=== PATIENT | male | born 1955 | race Caucasian/White ===

== ENCOUNTER → 2019-05-29 | Outpatient (CLI) | payer BC ==
--- NOTE | 2019-05-31 00:10 | MR ---
EXAMINATION TYPE: MR shoulder RT wo con DATE OF EXAM: 05/29/2019 COMPARISON: HISTORY: Right shoulder pain Multiplanar multiecho imaging of the right shoulder was performed without contrast. There is mild shoulder joint effusion. Subscapularis tendon is intact. Biceps tendon is intact. There is some narrowing at the glenohumeral joint. There is spurring on the humeral head and inferior roxanna oid labrum. There is some spurring at the AC joint. There is no significant subacromial impingement. There is slight thickening and increased signal in the supraspinatus tendon without retraction. I do not see a full-thickness tear. There is no bony destructive process. There is no evidence of a fractu re. IMPRESSION: Shoulder joint effusion. Moderately severe osteoarthritis in the glenohumeral joint. Mild thickening and signal changes in the supraspinatus tendon consistent with tendinitis.
== END | disposition home or self-care (01) ==
LOC: RADMRIMAIN 05:40
PROVIDERS: ATTEND Orthopaedic Surgery
DX: M19.011 Primary osteoarthritis, right shoulder (principal)

== ENCOUNTER → 2021-07-14 | Outpatient (CLI) | payer BC | END | disposition home or self-care (01) | LOC: LABPAT 09:24 | PROVIDERS: ATTEND Orthopaedic Surgery | DX: Z01.812 Encounter for preprocedural laboratory examination (principal); Z22.322 Carrier or suspected carrier of Methicillin resistant Staphylococcus aureus; M16.11 Unilateral primary osteoarthritis, right hip | CPT/HCPCS: 87070 ==

== ENCOUNTER → 2021-07-22 | Outpatient (CLI) | payer BC ==
[2021-07-22 14:06] LABS: Basophils # (A) 0.07 X 10*3/uL (0.00-0.10); Basophils % (A) 1.1 %; Eosinophils # (A) 0.36 X 10*3/uL (0.04-0.35); Eosinophils % (A) 5.7 %; HCT 49.6 % (39.6-50.0); HGB 16.4 g/dL (13.0-17.0); Immature Grans, Automated 0.5 %; Lymphocytes # (A) 1.03 X 10*3/uL (0.90-5.00); Lymphocytes % (A) 16.2 %; MCHC 33.1 g/dL (32.0-37.0); MCV 93.8 fL (80.0-97.0); Monocytes % (A) 9.4 %; NRBC Per 100 WBC 0 /100 WBCS (0.0-0.0); Neutrophils # (A) 4.26 X 10*3/uL (1.80-7.70); Neutrophils % (A) 67.1 %; Platelet Count 214 X 10*3/uL (140-440); RBC 5.29 X 10*6/uL (4.40-5.60); RDW 12.9 % (11.5-14.5); WBC 6.35 X 10*3/uL (4.50-10.00)
[2021-07-22 14:08] LABS: Anion Gap 12.6 mmol/L (10.00-18.00); Carbon Dioxide 22.4 mmol/L (20.0-27.5); Potassium 4.8 mmol/L (3.5-5.5)
[2021-07-22 14:16] LABS: INR 0.97 (0.90-1.11)
== END | disposition home or self-care (01) ==
LOC: LABPAT 08:27
PROVIDERS: ATTEND Orthopaedic Surgery
DX: Z01.812 Encounter for preprocedural laboratory examination (principal); M16.11 Unilateral primary osteoarthritis, right hip
CPT/HCPCS: 80051; 85025; 85610

== ENCOUNTER 2021-07-24 13:35 | Day surgery (SDC) | payer BC ==
[2021-07-21 12:44] VITALS: BMI 28.5
--- NOTE | 2021-07-23 14:18 | HP ---
HISTORY AND PHYSICAL DATE OF SURGERY: 07/24/2021 Jesse Arzola is a 65-year-old patient seen with symptomatic right hip osteoarthritis. We discussed options for treatment. He elected to proceed with direct anterior right total hip arthroplasty. Consent regarding the procedure was obtained. Cardiac clearance was provided by Dr. Maldonado. PAST MEDICAL HISTORY: Cardiovascular disease, hypertension, hyperlipidemia, [id number] diabetes. PAST SURGICAL HISTORY: Knee arthroscopy. DAILY MEDICATIONS: Amlodipine, meloxicam, Xarelto, atorvastatin, enalapril, glipizide, Januvia, omeprazole. ALLERGIES: NONE REPORTED. SOCIAL HISTORY: He denies tobacco use. PHYSICAL EVALUATION OF THE RIGHT HIP: He has diffuse tenderness about the hip girdle. Very limited range of motion with severe pain. Positive hip impingement sign. Straight-leg raise is negative. His distal neurovascular exam is intact. Radiographs of the right hip reveal severe osteoarthritic changes. IMPRESSION: 1. Right hip osteoarthritis. 2. Cardiovascular disease. 3. Hypertension. 4. Hyperlipidemia. 5. [id number] diabetes. PLAN: Direct anterior right total hip arthroplasty. MMODL / IJN: [id number] /
[~2021-07-24 13:35] MED LIST: ACETAMINOPHEN TAB 500 MG TAB PO PRN; DEXAMETHASONE SOD PHOSPHATE 4 MG/ML 1 ML VIAL IV ONE; LIDOCAINE 1% (10MG/ML) FOR IV START INTRADERMA PRN; MELOXICAM 7.5 MG TAB PO PRN; MIDAZOLAM 2 MG/2 ML VIAL IV PRN; ONDANSETRON 4 MG/2 ML VIAL IVP ONE; TRANEXAMIC ACID 1,000 MG in SODIUM CHLORIDE 0.9% 100 ML IVPB PRN
[2021-07-24 14:45] LABS: Glucose,Whole Blood 126 mg/dL (75-99)
[2021-07-24] MEDS: LACTATED RINGERS 1,000 ML IV SCH (14:46)
[2021-07-24] MEDS ORDERED: PHENYLEPHRINE-0.9% NACL SYG 1,000 MCG/10 ML SYRINGE ONE (15:48)
[2021-07-24] MEDS ORDERED: TRANEXAMIC ACID 1,000 MG/10 ML VIAL ONE (15:48)
[2021-07-24] MEDS ORDERED: MIDAZOLAM 2 MG/2 ML VIAL ONE (15:48)
[2021-07-24] MEDS ORDERED: PROPOFOL 10 MG/ML 20 ML VIAL IV ONE (15:48)
[2021-07-24] MEDS ORDERED: LIDOCAINE 1% INJ 10MG/ML (20 ML MDV) ONE (15:48)
[2021-07-24] MEDS ORDERED: SODIUM CHLORIDE 0.9% 100 ML BAG ONE (15:48)
[2021-07-24] MEDS ORDERED: ePHEDrine 50 MG/ML 1 ML VIAL ONE (15:48)
[2021-07-24] MEDS ORDERED: fentaNYL (PF) 50 MCG/ML 2 ML AMP ONE (15:48)
[2021-07-24] MEDS ORDERED: BUPIVACAINE (PF) 0.5% 30 ML VIAL SQ ONE (17:16)
[2021-07-24] MEDS ORDERED: HYDROcodone/APAP 7.5-325MG 1 EACH TAB PO PRN (17:38)
[2021-07-24] MEDS ORDERED: NALOXONE 0.4 MG/ML 1 ML VIAL IV PRN (17:38)
[2021-07-24] MEDS ORDERED: HYDROmorphone 1 MG/ML 1 ML SYRINGE IVP PRN ×2 (17:38)
[2021-07-24] MEDS ORDERED: MAGNESIUM HYDROXIDE 2,400 MG/10 ML CUP PO PRN (17:38)
[2021-07-24] MEDS ORDERED: ACETAMINOPHEN TAB 325 MG TAB PO PRN (17:38)
[2021-07-24] MEDS ORDERED: ONDANSETRON 4 MG/2 ML VIAL IVP PRN (17:38)
[2021-07-24] MEDS ORDERED: LACTATED RINGERS 1,000 ML IV ONE (17:41)
--- NOTE | 2021-07-24 17:43 | P.OP ---
Date of Procedure: 07/24/21 Preoperative Diagnosis: Right hip osteoarthritis Postoperative Diagnosis: Right hip osteoarthritis Procedure(s) Performed: Direct anterior right total hip arthroplasty Implants: 1. Depuy Corail size 11 high offset with collar press-fit femoral stem 2. Depuy pinnacle 58 mm press-fit acetabular shell 3. Depuy pinnacle neutral polyethylene acetabular liner 36 mm ID 50 mm OD 4. Biolox delta ceramic femoral head +5 36 mm Anesthesia: local, spinal Surgeon: Sammy Flores [employer]: Immanuel Thorne Estimated Blood Loss (ml): 150 Pathology: other (Femoral head) Condition: stable Disposition: PACU Indications for Procedure: 65-year-old patient seen with symptomatic right hip osteoarthritis. After treatment options were discussed, he elected to proceed with direct anterior right total hip arthroplasty. Operative Findings: see description of procedure Description of Procedure: The patient was taken to the operative suite. Patient underwent a spinal anesthetic by the department of anesthesia. Patient was then transferred to the [place] table. Patient was given preoperative IV antibiotics and TXA. Both lower extremities were placed in standard leg spars. The hip was then prepped and draped in the normal sterile orthopedic fashion. A standard anterior incision was made beginning 3 cm lateral and 1 cm distal to the ASIS extending 10 cm. Dissection was then carried down through the subcutaneous soft tissues down to the fascia overlying the tensor fascia demi. An incision was now made through the fascia. Careful dissection was taken down exposing the tensor fascia demi muscle. A Cobra retractor was now placed along the medial femoral neck and a second one along the lateral femoral neck. The venous circumflex vessels were now identified, cauterized and clipped. We identified the anterior hip capsule. An incision was made through the hip capsule along the lateral border. I performed a partial anterior capsulectomy. Retractors were now placed around the femoral neck itself. A femoral neck cut was now made with a sagittal saw. It was completed with an osteotome at the lateral neck area. The femoral head was now removed without difficulty. The extremity was now rotated to 60 of external rotation. It was locked in position. Residual labrum was now debrided out. Serial reaming was performed of the acetabulum while John LUCERO assisted holding an anterior retractor for exposure. Once we reached the appropriate size and a trial was position and fit nicely. The appropriate size was now chosen opened and made available. It was introduced into the acetabulum without difficulty. The C-arm/fluoroscopy was now brought into the operative field. We made sure we had a true AP pelvic view. We now under direct C-arm/fluoroscopy introduced into the acetabular component with appropriate version and inclination. I held the cup in appropriate position well John LUCERO used a mallet to seat the acetabular component. I noted the component now to be well seated and stable. Acetabular cup introduce her was removed. The C-arm was pulled back. An appropriate liner was introduced and clicked into position. It was felt to be stable. At this point retractors were removed. The extremity was now placed into 140 external rotation with no traction. The leg was now dropped to the ground and adducted. Appropriate retractors were now positioned along the proximal femur. We also placed our femoral look into position. Additional capsular releasing was performed to gain access to the proximal femur. We now used a box osteotome. A canal finder was now utilized. Serial broaching was now performed with the assistance of John LUCERO tapping the broaches down with a mallet while held the broach in appropriate rotation and position. This was done until we reached the appropriate size with good overall rotational stability. Appropriate calcar planing was performed. A trial head/neck was placed into position. The hip was now reduced. The C- arm/fluoroscopy was brought back into the operative field. I obtained AP pelvis demonstrating adequate leg length alignment. The trial components appeared ad equately sized and positioned. The C-arm/fluoroscopy was pulled back. Retractors were repositioned and the hip was dislocated. The leg was again taken down to the ground and adducted. Appropriate retractors were repositioned as well as the femoral hook. All trial components were removed. The femoral implant was opened along with the femoral head. The femoral implant was introduced on the appropriate handle into our pre-broached area. I held the component position well John LUCERO used a mallet to seat the femoral component. The femoral component was now noted to be well seated and stable.. The femoral head was introduced with good positioning and fixation noted. Retractors were now removed. The hip was now reduced. There appeared be good positioning of the hip confirmed on intraoperative fluoroscopy. Spot films were obtained to document this. A second gram of TXA was given. The deep and superficial soft tissues were infiltrated with local analgesic. Bipolar cautery had been utilized intermittently through the procedure for hemostasis. The wound was irrigated copiously with pulse lavage mechanical irrigation. The fascia was repaired with Vicryl suture. The subcutaneous soft tissues were repaired in layers with Vicryl suture. The skin was approximated with pernio/Dermabond. Sterile dressings were applied. Patient was then awakened, transferred to a bed and taken to recovery in stable condition. John LUCERO assisted with the complex procedure.
[2021-07-24 18:33] LABS: Glucose,Whole Blood 167 mg/dL (75-99)
[2021-07-24] MEDS: HYDROmorphone 0.5 MG/0.5 ML SYRINGE IVP PRN ×2 (19:00→19:30)
[2021-07-24] MEDS ORDERED: KETOROLAC 15 MG/ML 1 ML VIAL IVP ONE (19:03)
--- NOTE | 2021-07-24 19:03 | XR ---
EXAMINATION TYPE: XR Hip Limited RT DATE OF EXAM: 07/24/2021 COMPARISON: NONE HISTORY: Hip pain TECHNIQUE: 2 views 22 seconds fluoroscopy time was recorded. FINDINGS: 2 fluoroscopic images were obtained. There is right hip prosthesis. Components are in anato melba position. IMPRESSION: No complicating process seen.
[2021-07-24] MEDS ORDERED: SENNOSIDES-DOCUSATE SODIUM 1 EACH TAB PO SCH (21:00)
[2021-07-24 21:05] LABS: Glucose,Whole Blood 232 mg/dL (75-99)
--- NOTE | 2021-07-24 21:29 | FL ---
EXAMINATION TYPE: FL guidance operating room DATE OF EXAM: 07/24/2021 CLINICAL HISTORY: Right hip pain and osteoarthritis. TECHNIQUE: Fluoroscopy. COMPARISON: None. FINDINGS: Fluoroscopic guidance was provided during right hip replacement procedure performed by Dr. Flores. A total of 22 seconds of fluoroscopic time was utilized during the procedure and 2 spot intraoperative images are acquired. IMPRESSION: As Above.
[2021-07-24] MEDS: HYDROcodone/APAP 5-325MG 1 EACH TAB PO PRN (22:37)
[2021-07-25] MEDS ORDERED: SODIUM CHLORIDE 0.9% 1,000 ML IV SCH (02:30)
[2021-07-25] MEDS: HYDROcodone/APAP 5-325MG 1 EACH TAB PO PRN ×2 (04:55→11:56)
[2021-07-25 05:19] LABS: Basophils % (A) 0 %; Eosinophils % (A) 0 %; HCT 42.7 % (39.0-53.0); HGB 14.1 gm/dL (13.0-17.5); Lymphocytes # (A) 0.7 k/uL (1.0-4.8); Lymphocytes % (A) 6 %; MCH 32.2 pg (25.0-35.0); MCV 97.4 fL (80.0-100.0); Mean Platelet Volume 9.3; Monocytes # (A) 0.7 k/uL (0-1.0); Monocytes % (A) 7 %; Neutrophils # (A) 8.8 k/uL (1.3-7.7); Neutrophils % (A) 86 %; Platelet Count 157 k/uL (150-450); RBC 4.38 m/uL (4.30-5.90); RDW 12.7 % (11.5-15.5); WBC 10.3 k/uL (3.8-10.6)
[2021-07-25] MEDS: LACTATED RINGERS 1,000 ML IV SCH (06:22)
[2021-07-25 07:13] LABS: Glucose,Whole Blood 200 mg/dL (75-99)
[2021-07-25] MEDS ORDERED: INSULIN ASPART (NovoLOG) 100 UNIT/ML VIAL SQ SCH (07:30)
[2021-07-25] MEDS ORDERED: PANTOPRAZOLE 40 MG TABLET PO SCH (07:30)
[2021-07-25] MEDS ORDERED: glipiZIDE 10 MG TAB PO SCH (07:30)
[2021-07-25] MEDS ORDERED: carvediloL 6.25 MG TAB PO SCH (07:30)
[2021-07-25 08:29] VITALS: BP 125/65; PULSE 79; RESP 16; TEMP 99
[2021-07-25] MEDS ORDERED: lisinopriL 10 MG TAB PO SCH (09:00)
[2021-07-25] MEDS ORDERED: FENOFIBRATE 160 MG TAB PO SCH (09:00)
[2021-07-25] MEDS ORDERED: ATORVASTATIN 20 MG TAB PO SCH (09:00)
[2021-07-25] MEDS ORDERED: CHOLECALCIFEROL 125 MCG (5000 IU) TABLET PO SCH (09:00)
[2021-07-25] MEDS ORDERED: amLODIPine 10 MG TAB PO SCH (09:00)
[2021-07-25] MEDS ORDERED: FAMOTIDINE 20 MG TAB PO SCH (09:00)
[2021-07-25] MEDS ORDERED: RIVAROXABAN 10 MG TAB PO SCH (09:00)
--- NOTE | 2021-07-25 10:49 | P.PN ---
Subjective Progress Note Date: 07/25/21 Principal diagnosis: Status post direct anterior right total hip arthroplasty Patient evaluated at bedside, resting comfortably. He is doingwell. He is having no difficulty with urinating. His knee headaches, lightheadedness, chest pain or shortness of breath. Objective - Vital Signs Vital signs: Vital Signs Temp 99.0 F 07/25/21 08:00 Pulse 79 07/25/21 08:00 Resp 16 07/25/21 08:00 BP 125/65 07/25/21 08:00 Pulse Ox 95 07/25/21 08:00 Intake & Output 07/24/21 07/25/21 07/25/21 18:59 06:59 18:59 Intake Total 850 200 Output Total 150 800 Balance 700 -600 Weight 93.8 kg Intake: IV 850 200 Output: Urine 800 Estimated Blood Loss 150 - Exam Right lower extremity: Incision is clean, dry, and intact. The foam dressing is in good condition. There is minimal soft tissue swelling and ecchymosis surrounding the medial and lateral aspects of the incision. Calf is soft, no tenderness with palpation. Plantar flexion, dorsiflexion, EHL, FHL are intact. Sensory exam to light touch throughout the extremity is intact, dorsal pedis pulses 2+. - Labs CBC & Chem 7: 07/25/21 04:46 Labs: Abnormal Lab Results - Last 24 Hours (Table) 07/24/21 07/24/21 07/24/21 Range/Units 14:43 18:31 21:04 Neutrophils # (1.3-7.7) k/uL Lymphocytes # (1.0-4.8) k/uL POC Glucose (mg/dL) 126 H 167 H 232 H (75-99) mg/dL 07/25/21 07/25/21 Range/Units 04:46 07:12 Neutrophils # 8.8 H (1.3-7.7) k/uL Lymphocytes # 0.7 L (1.0-4.8) k/uL POC Glucose (mg/dL) 200 H (75-99) mg/dL Assessment and Plan Assessment: Postoperative day #1 status post right anterior right total hip arthroplasty Plan: Pain control, plan for discharge home on [place] 5 mg/325 mg. Colace 100 mg also use for constipation prophylaxis GI and DVT prophylaxis, he will resume his normally prescribed Xarelto Wound care instructions were discussed, this including showering instructions and icing and elevating instructions Home physical therapy and nursing after discharge Medical recommendations Plan for discharge home today Time with Patient: Less than 30
--- NOTE | 2021-07-25 10:50 | P.DS ---
Providers Date of admission: 07/24/2021 Attending physician: Sammy Flores Consults: 07/24/21 17:41 Consult Physician Routine Consulting Provider: Sarbjit Singh Reason/Comments: Medical Management Do you want consulting provider notified?: Yes Primary care physician: Radha Craft Hospital Course: Date of admission: 07/24/2021 Date of discharge: 07/25/2021 Admission diagnosis: Status post direct anterior right total hip arthroplasty Discharge diagnosis: Same Attending physician: Dr. Flores Surgical procedures: Direct anterior right total hip arthroplasty Brief history: Patient is a 65 year old male with a history of progressive primary right hip osteoarthritis. At this point patient has failed conservative treatment measures and has opted to proceed with a elective direct anterior right total hip arthroplasty. Hospital course: Details of patient's surgery can be found in operative report. Patient tolerated the procedure well and was subsequently transported to orthop edic floor. Patient's orthopeidc and medical care was provided daily. Patient had daily laboratory tests performed for evaluation of overall blood counts. Patient had daily physical therapy to include strengthening range of motion as well as education with walker ambulation. Patient was treated with Xarelto for their postoperative DVT prophylaxis during their inpatient stay. Patient was noted to have a relatively uneventful postoperative course. Patient reported satisfactory pain control with oral pain medications by postoperative day 0. Patient showed satisfactory progress with physical therapy. Patient moved steadily through the program and had no difficulty meeting the goals by postoperative day 1. Given patient's otherwise satisfactory course and having met physical therapy goals, plan is to discharge patient home on postoperative day 1. Discharge condition/disposition: Patient will be discharged home in stable condition. Discharge medications: Instructions are given on resumption of patient's normal daily medications per primary care recommendation, in addition patient will be prescribed [place] 5 mg/325 mg, Colace 100mg. Discharge instructions: 1. Wound care and infection precautions, keep incision dry and covered while showering, no lotions, creams, moisturizers. No soaking, tubs, pools, hottubs. Do not scrub over the incision. 2. Weight-bear as tolerated with walker / cane until follow-up. 3. Ice and elevate when necessary. Do not exceed 20 minutes per hour with ice pack. 4. Utilize compression sleeve until seen at first follow up appointment. 5. Visiting nursing care. 6. Home physical therapy 7. Pain meds and anticoagulants per prescription. 8. Pain medication has potential to cause constipation. Increase oral fluid and fiber intake. Contact primary care provider if you have not had a bowel movement within 48 hours after discharge 9. No anti-inflammatory medication until discussed at first post operative visit, this including Motrin, Aleve, Mobic, Diclofenac 10. Follow up in office at 2 weeks postop with John Thorne PA-C/Harlan Christianson 11. Follow up with your primary care doctor 7-10 days after discharge. 12. Contact [facility] with any questions, . Procedures: Direct anterior right total hip arthroplasty Patient Condition at Discharge: Good Plan - Discharge Summary Discharge Rx Participant: No New Discharge Prescriptions: New Docusate [Colace] 100 mg PO DAILY #30 capsule HYDROcodone/APAP 5-325MG [[place] 5-325] 1 tab PO Q6HR PRN #28 tab PRN Reason: Pain Continue Enalapril [Vasotec] 10 mg PO DAILY Meloxicam 15 mg PO QAM glipiZIDE XL [Glucotrol XL] 10 mg PO DAILY Dapagliflozin Propanediol [Farxiga] 5 mg PO QAM Cholecalciferol [Vitamin D3 (125 Mcg = 5000 Iu)] 125 mcg PO DAILY sitaGLIPtin PHOSPHATE [Januvia] 100 mg PO DAILY Omeprazole [PriLOSEC] 20 mg PO AC-BID Fenofibrate,Micronized 200 mg PO QAM Atorvastatin [Lipitor] 60 mg PO QAM Aspirin [Adult Low Dose Aspirin EC] 81 mg PO DAILY amLODIPine [Norvasc] 10 mg PO DAILY Carvedilol [Coreg] 6.25 mg PO BID Rivaroxaban [Xarelto] 20 mg PO DAILY Discontinued Enoxaparin [Lovenox] 100 mg SQ DIRECTED Discharge Medication List Aspirin [Adult Low Dose Aspirin EC] 81 mg PO DAILY 07/21/21 [History] Atorvastatin [Lipitor] 60 mg PO QAM 07/21/21 [History] Carvedilol [Coreg] 6.25 mg PO BID 07/21/21 [History] Cholecalciferol [Vitamin D3 (125 Mcg = 5000 Iu)] 125 mcg PO DAILY 07/21/21 [History] Dapagliflozin Propanediol [Farxiga] 5 mg PO QAM 07/21/21 [History] Enalapril [Vasotec] 10 mg PO DAILY 07/21/21 [History] Fenofibrate,Micronized 200 mg PO QAM 07/21/21 [History] Meloxicam 15 mg PO QAM 07/21/21 [History] Omeprazole [PriLOSEC] 20 mg PO AC-BID 07/21/21 [History] Rivaroxaban [Xarelto] 20 mg PO DAILY 07/21/21 [History] amLODIPine [Norvasc] 10 mg PO DAILY 07/21/21 [History] glipiZIDE XL [Glucotrol XL] 10 mg PO DAILY 07/21/21 [History] sitaGLIPtin PHOSPHATE [Januvia] 100 mg PO DAILY 07/21/21 [History] Docusate [Colace] 100 mg PO DAILY #30 capsule 07/25/21 [Rx] HYDROcodone/APAP 5-325MG [[place] 5-325] 1 tab PO Q6HR PRN #28 tab 07/25/21 [Rx] Follow up Appointment(s)/Referral(s): [facility] [NON-STAFF] - As Needed [facility] [NON-STAFF] - As Needed (jose ) Radha Craft MD [Primary Care Provider] - 1 Week Sammy Flores DO [Doctor of Osteopathic Medicine] - 08/09/21 3:50 pm (With John) Activity/Diet/Wound Care/Special Instructions: Orthopedic Discharge Instructions: 1. Wound care and infection precautions, keep incision dry and covered while showering, no lotions, creams, moisturizers. No soaking, pools, hot tubs. Do not scrub over incision. 2. Weight-bear as tolerated with walker / cane until follow-up. 3. Ice and elevate when necessary. Do not exceed 20 minutes per hour with ice pack. 4. Utilize compression sleeve until seen at first follow up appointment. 5. Pain meds and anticoagulants per prescription. 6. Pain medication has potential to cause constipation. Increase oral fluid and fiber intake. Contact primary care provider if you have not had a bowel movement within 48 hours after discharge. 7. No anti-inflammatory medication until discussed at first post operative visit, this including Motrin, Aleve, Mobic, Diclofenac. 8. Follow up in office at 2 weeks postop with John Thorne PA-C/Harlan Garcia PA-C 9. Follow up with your primary care doctor 7-10 days after discharge. 10. Contact [facility] with any questions, . Discharge Disposition: HOME WITH HOME HEALTH SERVICES
[2021-07-25 11:21] LABS: Glucose,Whole Blood 161 mg/dL (75-99)
--- NOTE | 2021-07-25 21:44 | P.CONS ---
History of Present Illness - Reason for Consult Consult date: 07/25/21 Medical management Requesting physician: Sammy Flores - Chief Complaint Right hip surgery - History of Present Illness This is a pleasant 65-year-old patient, follows with Dr. Radha Craft. Chronic stable medical conditions include diabetes, hyperlipidemia, hypertension, CAD with stent last one being in 2016, pulmonary embolism 2 years ago, DVT in March 16. Patient has undergone right total hip arthroplasty. Slight pain. Has been up and walking. No nausea vomiting. No chest pain or shortness of breath. Did tolerate his breakfast this morning. Review of systems: GEN.: None EYES: None HEENT: None NECK: None RESPIRATORY: None CARDIOVASCULAR: None GASTROINTESTINAL: None GENITOURINARY: None MUSCULOSKELETAL: Joint pains LYMPHATICS: None HEMATOLOGICAL: None PSYCHIATRY: None NEUROLOGICAL: None Past medical history to include: Diabetes, DVT in March 16, hypertension, hyperlipidemia, osteoarthritis, bilateral PE in 2017 Social history: . No alcohol. Smoked for 15 years stopped in 1977. Physical examination: VITAL SIGNS: 99, 79, 16, 125/65, 95% room air GENERAL: BMI 28.8, sitting on a chair, awake, comfortable. EYES: Pupils equal. Conjunctiva normal. HEENT: External appearance of nose and ears normal, oral cavity grossly normal. NECK: JVD not raised; masses not palpable. HEART: First and second heart sounds are normal; no edema. LUNGS: Respiratory rate normal; clear to auscultation. ABDOMEN: Soft, nontender, liver spleen not palpable, no masses palpable. PSYCH: Alert and oriented x3; mood and affect normal. MUSCULOSKELETAL:No Clubbing/cyanosis;muscles-grossly intact. Dressing over the right incision. Evidence of OA especially in the hands NEUROLOGICAL: Cranial nerves grossly intact; no facial asymmetry, power and sensation grossly intact. LYMPHATICS: No lymph nodes palpable in the axilla and neck INVESTIGATIONS, reviewed in the clinical context: White count 10.3 hemoglobin 14.1 platelets 157 Accu-Cheks noted Recent labs: Potassium 4.8 sodium 136 Assessment and plan: -Right total hip arthroplasty by Dr. Bain Continue home dose of xarelto -Diabetes mellitus type 2, oral hypoglycemic farxiga 5 mg daily, Glucotrol XL 10 mg a day, Januvia 100 mg a day -Chronic DVT lower extremity Xarelto 20 mg a day -Essential hypertension Coreg 6.25 mg twice a day Vasotec 10 mg a day Norvasc 10 mg a day -Hyperlipidemia Lipitor 60 mg a day TriCor 1 mg a day -GERD Prilosec 20 mg twice a day -CAD with a prior history of stent last one being in 2016 Aspirin 81 mg a day, Coreg 6.25 mg twice a day Vasotec 10 mg a day Norvasc 10 mg a day -Chronic pulmonary embolism in 2017, chronic DVT being in February 2021 Xarelto 20 mg a day -Primary osteoarthritis multiple joints bilateral Pain medications as needed Care was discussed with the patient. Questions answered. Home medications resumed. Patient told to keep his Accu-Cheks and blood pressure. Follow-up with us family doctor. Activity per orthopedics. Thank you Dr. Bain Past Medical History Past Medical History: Diabetes Mellitus, Deep Vein Thrombosis (DVT), Hyperlipidemia, Hypertension, Myocardial Infarction (HI), Osteoarthritis (OA), Pulmonary Embolus (PE) Additional Past Medical History / Comment(s): HI x 3, 2017 rudy PE's, 02/2021-DVT rt leg, Last Myocardial Infarction Date:: 2017 History of Any Multi-Drug Resistant Organisms: None Reported Past Surgical History: Heart Catheterization, Heart Catheterization With Stent, Orthopedic Surgery, Tonsillectomy Additional Past Surgical History / Comment(s): arthroscopy rt knee, 4 cardiac stents, procedure to "pump heparin to blood clot in lung" Past Anesthesia/Blood Transfusion Reactions: No Reported Reaction Date of Last Stent Placement:: 2014 Past Psychological History: No Psychological Hx Reported Smoking Status: Never smoker Past Alcohol Use History: Occasional Additional Past Alcohol Use History / Comment(s): quit smoking 20 yrs ago, smoked for 25 yrs, 1 PPD Past Drug Use History: None Reported - Past Family History Mother Family Medical History: No Reported History Medications and Allergies Home Medications Medication Instructions Recorded Confirmed Type Aspirin [Adult Low Dose Aspirin EC] 81 mg PO DAILY 07/21/21 07/21/21 History Atorvastatin [Lipitor] 60 mg PO QAM 07/21/21 07/24/21 History Carvedilol [Coreg] 6.25 mg PO BID 07/21/21 07/24/21 History Cholecalciferol [Vitamin D3 (125 125 mcg PO DAILY 07/21/21 07/24/21 History Mcg = 5000 Iu)] Dapagliflozin Propanediol [Farxiga] 5 mg PO QAM 07/21/21 07/24/21 History Enalapril [Vasotec] 10 mg PO DAILY 07/21/21 07/24/21 History Fenofibrate,Micronized 200 mg PO QAM 07/21/21 07/24/21 History Meloxicam 15 mg PO QAM 07/21/21 07/21/21 History Omeprazole [PriLOSEC] 20 mg PO AC-BID 07/21/21 07/24/21 History Rivaroxaban [Xarelto] 20 mg PO DAILY 07/21/21 07/21/21 History amLODIPine [Norvasc] 10 mg PO DAILY 07/21/21 07/24/21 History glipiZIDE XL [Glucotrol XL] 10 mg PO DAILY 07/21/21 07/24/21 History sitaGLIPtin PHOSPHATE [Januvia] 100 mg PO DAILY 07/21/21 07/24/21 History Docusate [Colace] 100 mg PO DAILY #30 capsule 07/25/21 Rx HYDROcodone/APAP 5-325MG [[place] 1 tab PO Q6HR PRN #28 tab 07/25/21 Rx 5-325] Allergies Allergy/AdvReac Type Severity Reaction Status Date / Time No Known Allergies Allergy Verified 07/24/21 15:12 Physical Exam Vitals: Vital Signs Temp Pulse Pulse Pulse Resp BP BP 07/25/21 08:00 99.0 F 79 16 125/65 07/25/21 02:00 98.2 F 101 H 17 110/66 07/24/21 19:30 71 16 120/70 07/24/21 18:50 72 16 117/71 07/24/21 18:38 77 16 104/73 07/24/21 18:23 71 16 117/60 07/24/21 18:08 97.8 F 78 15 107/62 07/24/21 14:34 98.6 F 86 18 140/77 Pulse Ox 07/25/21 08:00 95 07/25/21 02:00 93 L 07/24/21 19:30 07/24/21 18:50 98 07/24/21 18:38 95 07/24/21 18:23 98 07/24/21 18:08 97 07/24/21 14:34 98 Intake and Output 02/07/25/21 07/25/21 22:59 06:59 14:59 Intake Total 1050 Output Total 150 800 Balance 900 -800 Intake: IV 1050 Output: Urine 800 Estimated Blood Loss 150 Other: Weight 93.8 kg Results CBC & Chem 7: 07/25/21 04:46 Labs: Abnormal Lab Results - Last 24 Hours (Table) 07/24/21 07/24/21 07/24/21 Range/Units 14:43 18:31 21:04 Neutrophils # (1.3-7.7) k/uL Lymphocytes # (1.0-4.8) k/uL POC Glucose (mg/dL) 126 H 167 H 232 H (75-99) mg/dL 07/25/21 07/25/21 Range/Units 04:46 07:12 Neutrophils # 8.8 H (1.3-7.7) k/uL Lymphocytes # 0.7 L (1.0-4.8) k/uL POC Glucose (mg/dL) 200 H (75-99) mg/dL
== END 2021-07-25 12:00 | disposition home health service (06) ==
LOC: OR 13:35 → 4SSUR 17:35 → OR 07-25 12:00
PROVIDERS: ATTEND Orthopaedic Surgery
DX: M16.11 Unilateral primary osteoarthritis, right hip (principal); I25.10 Atherosclerotic heart disease of native coronary artery without angina pectoris; I10 Essential (primary) hypertension; E78.2 Mixed hyperlipidemia; E11.9 Type 2 diabetes mellitus without complications; K21.9 Gastro-esophageal reflux disease without esophagitis; Z98.890 Other specified postprocedural states; Z86.14 Personal history of Methicillin resistant Staphylococcus aureus infection; Z95.5 Presence of coronary angioplasty implant and graft; Z82.49 Family history of ischemic heart disease and other diseases of the circulatory system; Z72.0 Tobacco use; Z86.718 Personal history of other venous thrombosis and embolism; Z79.01 Long term (current) use of anticoagulants; Z79.84 Long term (current) use of oral hypoglycemic drugs; Z79.899 Other long term (current) drug therapy; Z79.1 Long term (current) use of non-steroidal anti-inflammatories (NSAID); Z79.82 Long term (current) use of aspirin
CPT/HCPCS: 97161; 86900; 86901; 86902; 85025; 86850; 86870; 86880; 88300; 73501; 36415; 27130; C1776; J2250; J1100; J0690 ×2; J2405; J2001; J3010; J1170 ×2; J1885; J2370; J2704